=== PATIENT | female | born 1995 | race Caucasian/White ===

== ENCOUNTER 2017-07-11 03:09 | Emergency (ER) | payer SELFPAY ==
[2017-07-11] MEDS ORDERED: ONDANSETRON 4 MG (ODT) TAB ONE (03:21)
[2017-07-11] MEDS ORDERED: NA CHLORIDE 0.9% 1,000 ML ONE (03:21)
[2017-07-11] MEDS ORDERED: MAGNE/ALUM HYDROXD 30 ML UCUP ONE (03:40)
[2017-07-11 04:06] LABS: Albumin 4.6 g/dL (3.2-5.5); Bilirubin Total 0.3 mg/dL (0.3-1.2); Protein, Total 7.7 g/dL (6.0-8.3)
[2017-07-11 04:08] LABS: Potassium 2.8 mEq/L (3.6-5.0)
[2017-07-11] MEDS ORDERED: POTASSIUM CL SA 10 MEQ TAB PO ONE (04:12)
--- NOTE | 2017-07-11 04:13 | EDPHYS ---
Physician Documentation [facility] Name: Lorri Smart Age: 22 yrs Sex: Female : 1995 Arrival Date: 07/11/2017 Time: 03:10 Bed 4 Private MD: None, None ED Physician Eliot Mares HPI: 07/11 03:22 This 22 yrs old Female presents to ER via EMS with complaints of tw4 Nausea/Vomiting. 03:22 The patient presents to the emergency department with nausea, that is moderate, tw4 vomiting, 5 times since the onset of symptoms. Onset: The symptoms/episode began/occurred today. Possible causes: unknown. The symptoms are aggravated by nothing. The symptoms are alleviated by nothing. Severity of symptoms: At their worst the symptoms were moderate in the emergency department the symptoms are unchanged. The patient has not experienced similar symptoms in the past. 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 - Social history:: Smoking status: Patient uses tobacco products, smokes one pack cigarettes per day. Patient uses alcohol, occasionally. Patient/guardian denies using street drugs. - Ebola Screening: : Patient negative for fever greater than or equal to 101.5 degrees Fahrenheit, and additional compatible Ebola Virus Disease symptoms Patient denies exposure to infectious person Patient denies travel to an Ebola-affected area in the 21 days before illness onset. ROS: 03:22 Constitutional: Negative for fever, chills, and weight loss, Cardiovascular: Negative tw4 for chest pain, palpitations, and edema, Respiratory: Negative for shortness of breath, cough, wheezing, and pleuritic chest pain. 03:22 Abdomen/GI: Positive for abdominal pain, nausea and vomiting, nausea, vomiting, and diarrhea, nausea, vomiting. Exam: 03:22 Constitutional: This is a well developed, well nourished patient who is awake, alert, tw4 and in no acute distress. Head/Face: Normocephalic, atraumatic. Cardiovascular: Regular rate and rhythm with a normal S1 and S2. No gallops, murmurs, or rubs. Normal PMI, no JVD. No pulse deficits. Respiratory: Lungs have equal breath sounds bilaterally, clear to auscultation and percussion. No rales, rhonchi or wheezes noted. No increased work of breathing, no retractions or nasal flaring. 03:22 Abdomen/GI: Inspection: abdomen appears normal, Bowel sounds: normal, Palpation: mild abdominal tenderness, in the epigastric area. Vital Signs: 03:15 BP 103 / 56; Pulse 97; Resp 18; Temp 98.0(O); Pulse Ox 98% on R/A; Weight 86.18 kg (R); fc Height 5 ft. 3 in. (160.02 cm) (R); Pain 8/10; 04:07 BP 95 / 56; Pulse 72; Resp 16; Temp 98; Pulse Ox 97% on R/A; Pain 0/10; ak1 03:15 Body Mass Index 33.66 (86.18 kg, 160.02 cm) fc MDM: 03:58 Patient medically screened. tw4 04:13 Differential diagnosis: Nonspecific abd pain, gastritis. Data reviewed: vital signs, tw4 nurses notes. Data interpreted: Pulse oximetry: Interpretation: normal. Counseling: I had a detailed discussion with the patient and/or guardian regarding: the historical points, exam findings, and any diagnostic results supporting the discharge/admit diagnosis, lab results. Medication response: Zofran relieved the patient's nausea. Response to treatment: and as a result, I will discharge patient. Special discussion: I discussed with the patient/guardian in detail that at this point there is no indication for admission to the hospital. It is understood, however, that if the symptoms persist or worsen the patient needs to return immediately for re-evaluation. 07/11 03:20 Order name: ETOH Level; Complete Time: 04:09 tw4 07/11 03:20 Order name: CMP; Complete Time: 04:09 tw4 07/11 04:09 Interpretation: Normal except: K 2.8; CO2 20; GFR 75. tw4 Administered Medications: 03:23 Drug: NS 0.9% 1000 ml Route: IV; Rate: 1 bolus; Site: right antecubital; lp1 04:07 Follow up: IV Status: Completed infusion ak1 03:25 Drug: Zofran 4 mg Route: PO; ak1 03:41 Follow up: Response: No adverse reaction; Nausea is decreased ak1 03:40 Drug: Maalox Suspension (200 mg-200 mg-20 mg/5 mL) 30 ml Route: PO; ak1 03:41 Follow up: Response: No adverse reaction ak1 04:14 Drug: Potassium Chloride 40 mEq Route: PO; ak1 04:15 Follow up: Response: No adverse reaction ak1 Disposition: 07/11/17 04:13 Discharged to Home. Impression: Alcohol use, unspecified with intoxication, Hypokalemia. - Condition is Stable. - Discharge Instructions: Alcohol Intoxication, Potassium Content of Foods, Hypokalemia. - Prescriptions for Zofran 4 mg Oral Tablet - take 1 tablet by ORAL route every 12 hours As needed; 6 tablet. - Medication Reconciliation Form, Thank You Letter, Antibiotic Education, Prescription Opioid Use form. - Follow up: Private Physician; When: As needed; Reason: Recheck today's complaints, Continuance of care, Re-evaluation by your physician. - Problem is new. - Symptoms have improved. Signatures: Dispatcher [employer] EDMS Suyapa Marin RN RN fc Pena, Laura, RN RN lp1 Joelle Carranza RN RN ak1 Eliot Mares MD MD tw4 Corrections: (The following items were deleted from the chart) 04:27 04:13 07/11/2017 04:13 Discharged to Home. Impression: Alcohol use, unspecified with ak1 intoxication; Hypokalemia. Condition is Stable. Forms are Medication Reconciliation Form, Thank You Letter, Antibiotic Education, Prescription Opioid Use. Follow up: Private Physician; When: As needed; Reason: Recheck today's complaints, Continuance of care, Re-evaluation by your physician. Problem is new. Symptoms have improved. tw4
--- NOTE | 2017-07-11 04:13 | ER ---
Nurse's Notes [facility] Name: Lorri Smart Age: 22 yrs Sex: Female : 1995 Arrival Date: 07/11/2017 Time: 03:10 Bed 4 Private MD: None, None Diagnosis: Alcohol use, unspecified with intoxication;Hypokalemia Presentation: 07/11 03:10 Presenting complaint: EMS states: that pt drank a large bottle of wine and is now fc having nausea, vomiting and dehydration. Pt told them that she has had no water to drink and no food since Monday. Pt has though been drinking monster drinks, tea and soda. Had 2 large monster drinks prior to drinking the wine. Also having chest pain and stomach pain. Transition of care: patient was not received from another setting of care. Onset of symptoms was July 11, 2017. Risk Assessment: Do you want to hurt yourself or someone else? Patient reports no desire to harm self or others. Initial Sepsis Screen: Does the patient meet any 2 criteria? HR > 90 bpm. Yes Does the patient have a suspected source of infection? No. Patient's initial sepsis screen is negative. Care prior to arrival: None. 03:10 Method Of Arrival: EMS: [facility] 03:10 Acuity: NAZARIO 3 fc Triage Assessment: 03:16 General: Appears in no apparent distress. unkempt, Behavior is cooperative, Smells of ak1 alcohol, urine. Pain:. EENT: No signs and/or symptoms were reported regarding the EENT system. Neuro: Level of Consciousness is awake, alert, obeys commands, Oriented to person, place, time, situation, Moves all extremities. Speech is normal, Facial symmetry appears normal. Cardiovascular: No deficits noted. Respiratory: No deficits noted. GI: Abdomen is round Reports nausea, vomiting. : No signs and/or symptoms were reported regarding the genitourinary system. Derm: No signs and/or symptoms reported regarding the dermatologic system. Musculoskeletal: No signs and/or symptoms reported regarding the musculoskeletal system. 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 - Social history:: Smoking status: Patient uses tobacco products, smokes one pack cigarettes per day. Patient uses alcohol, occasionally. Patient/guardian denies using street drugs. - Ebola Screening: : Patient negative for fever greater than or equal to 101.5 degrees Fahrenheit, and additional compatible Ebola Virus Disease symptoms Patient denies exposure to infectious person Patient denies travel to an Ebola-affected area in the 21 days before illness onset. Screenin:16 Abuse screen: Denies threats or abuse. Nutritional screening: No deficits noted. Tuberculosis screening: No symptoms or risk factors identified. 03:18 Fall Risk IV access (20 points). Mental Status- Overestimates/Forgets Limitations (15 ak1 pts.). Assessment: 03:18 Reassessment: Patient appears in no apparent distress at this time. see triage ak1 assessment. General: Appears in no apparent distress. Behavior is cooperative, Smells of alcohol, urine. 03:45 Reassessment: Patient appears in no apparent distress at this time. No changes from ak1 previously documented assessment. Patient is alert, oriented x 3, equal unlabored respirations, skin warm/dry/pink. pt with friends at the bedside. Vital Signs: 03:15 BP 103 / 56; Pulse 97; Resp 18; Temp 98.0(O); Pulse Ox 98% on R/A; Weight 86.18 kg (R); Height 5 ft. 3 in. (160.02 cm) (R); Pain 8/10; 04:07 BP 95 / 56; Pulse 72; Resp 16; Temp 98; Pulse Ox 97% on R/A; Pain 0/10; ak1 03:15 Body Mass Index 33.66 (86.18 kg, 160.02 cm) ED Course: 03:10 Patient arrived in ED. ds1 03:10 None, None is Private Physician. ds1 03:14 Triage completed. fc 03:15 Eliot Mares MD is Attending Physician. tw4 03:15 Joelle Carranza, RN is Primary Nurse. ak1 03:15 Arm band placed on Patient placed in an exam room, on a stretcher. fc 03:16 Patient has correct armband on for positive identification. Bed in low position. Call light in reach. Side rails up X2. Pulse ox on. NIBP on. 03:16 Inserted saline lock: 22 gauge in right antecubital area, using aseptic technique. ak1 Blood collected. Missed attempt(s): 20 gauge in right antecubital area. 03:41 No provider procedures requiring assistance completed. ak1 04:08 Notified ED physician of a critical lab result(s). Potassium 2.8. lp1 04:16 IV discontinued, intact, bleeding controlled, No redness/swelling at site. Pressure ak1 dressing applied. Administered Medications: 03:23 Drug: NS 0.9% 1000 ml Route: IV; Rate: 1 bolus; Site: right antecubital; lp1 04:07 Follow up: IV Status: Completed infusion ak1 03:25 Drug: Zofran 4 mg Route: PO; ak1 03:41 Follow up: Response: No adverse reaction; Nausea is decreased ak1 03:40 Drug: Maalox Suspension (200 mg-200 mg-20 mg/5 mL) 30 ml Route: PO; ak1 03:41 Follow up: Response: No adverse reaction ak1 04:14 Drug: Potassium Chloride 40 mEq Route: PO; ak1 04:15 Follow up: Response: No adverse reaction ak1 Outcome: 04:13 Discharge ordered by . tw4 04:15 Condition: stable ak1 04:15 Discharge instructions given to patient, friend, Instructed on discharge instructions, follow up and referral plans. medication usage, Demonstrated understanding of instructions, follow-up care, medications, Prescriptions given X 1. 04:27 Discharged to home via wheelchair, with friend. ak1 04:27 Patient left the ED. ak1 Signatures: Suyapa Marin RN RN Adriana Canales dsYamileth Mccabe RN RN lp1 Joelle Carranza RN RN ak1 Eliot Mares MD MD tw4
== END 2017-07-11 04:27 | disposition home or self-care (01) ==
LOC: ER 03:09
DX: E87.6 Hypokalemia (principal); F10.129 Alcohol abuse with intoxication, unspecified; F17.210 Nicotine dependence, cigarettes, uncomplicated
CPT/HCPCS: 36415; 80053; 80320; 96360; 99284; J7030

== ENCOUNTER 2017-07-29 14:45 | Emergency (ER) | payer SELFPAY ==
[2017-07-29] MEDS ORDERED: AZITHROMYCIN 250 MG TAB ONE (15:31)
--- NOTE | 2017-07-29 15:34 | ER ---
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 Transition of care: patient was not received from another setting of care. Onset of symptoms was July 29, 2017. Risk Assessment: Do you want to hurt yourself or someone else? Patient reports no desire to harm self or others. Initial Sepsis Screen: Does the patient meet any 2 criteria? No. Patient's initial sepsis screen is negative. Does the patient have a suspected source of infection? No. Patient's initial sepsis screen is negative. Care prior to arrival: None. 15:01 Method Of Arrival: Ambulatory 15:01 Acuity: NAZARIO 4 Triage Assessment: 15:03 General: Appears in no apparent distress. uncomfortable, Behavior is cooperative, hj appropriate for age, agitated. Pain: Complains of pain in head Pain currently is 8 out of 10 on a pain scale. 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 - Social history:: Smoking status: Patient uses tobacco products, smokes one pack cigarettes per day. Patient/guardian denies using alcohol. - Ebola Screening: : Patient negative for fever greater than or equal to 101.5 degrees Fahrenheit, and additional compatible Ebola Virus Disease symptoms Patient denies exposure to infectious person Patient denies travel to an Ebola-affected area in the 21 days before illness onset. Screenin:03 Abuse screen: Denies threats or abuse. Denies injuries from another. Nutritional hj screening: No deficits noted. Tuberculosis screening: No symptoms or risk factors identified. Fall Risk None identified. Assessment: 15:20 General: Appears in no apparent distress. well groomed, well developed, well nourished, rk2 Behavior is calm, cooperative. 15:20 Neuro: Level of Consciousness is alert, obeys commands, Oriented to person, place, rk2 time, situation. Respiratory: Reports cough that is Airway is patent Respiratory effort is even, unlabored, Respiratory pattern is regular, symmetrical. Derm: Skin is pink, warm \T\ dry. Vital Signs: 15:03 BP 123 / 68; Pulse 78; Resp 18; Temp 97.6(TE); Pulse Ox 97% on R/A; Weight 90.72 kg; hj Height 5 ft. 3 in. (160.02 cm); Pain 8/10; 15:03 Body Mass Index 35.43 (90.72 kg, 160.02 cm) ED Course: 14:49 Patient arrived in ED. mr 14:49 None, None is Private Physician. mr 15:02 Triage completed. hj 15:03 Arm band placed on left wrist. hj 15:04 Patient has correct armband on for positive identification. Bed in low position. Call light in reach. Side rails up X 1. 15:05 Lucrecia Ahuja, IMER is Primary Nurse. rk2 15:06 Mohinder Medina MD is Attending Physician. snw 15:06 Ifeoma Jurado F[facility]-C [facility]. snw 16:18 No provider procedures requiring assistance completed. Patient did not have IV access rk2 during this emergency room visit. Administered Medications: 15:31 Drug: Zithromax 500 mg Route: PO; tl3 15:42 Follow up: Response: No adverse reaction; Given \T\ DC rk2 Intake: Outcome: 15:34 Discharge ordered by . snw 16:18 Discharged to home ambulatory. rk2 16:18 Condition: good 16:18 Discharge instructions given to patient, Prescriptions given X 1. 16:18 Patient left the ED. rk2 Signatures: Ifeoma Jurado FNP-C FNP-Selina Negrete FabriceKalin RN RN Lucrecia Ahuja RN RN rk2 Reina Pelletier RN RN tl3 Corrections: (The following items were deleted from the chart) 15:05 15:03 Pulse 78bpm; Resp 18bpm; Pulse Ox 97% RA; Temp 97.6F Temporal; 90.72 kg; Height 5 hj ft. 3 in.; BMI: 35.4; Pain 8/10; hj 16:18 16:17 BP 111 / 60; Pulse 77bpm; Resp 17bpm; Pulse Ox 98% RA; rk2 rk2
--- NOTE | 2017-07-29 15:34 | EDPHYS ---
Physician Documentation [facility] Name: Lorri Smart Age: 22 yrs Sex: Female : 1995 Arrival Date: 07/29/2017 Time: 14:49 Bed 27 Private MD: None, None ED Physician Mohinder Medina HPI: 07/29 16:17 This 22 yrs old Female presents to ER via Ambulatory with complaints of Flu snw Symptoms. 16:17 The patient or guardian reports airway noise, cough, with no sputum. Onset: The snw symptoms/episode began/occurred yesterday. Severity of symptoms: At their worst the symptoms were moderate. Associated signs and symptoms: The patient has no apparent associated signs or symptoms. The patient has not experienced similar symptoms in the past. The patient has not recently seen a physician. wants to make sure she does not have the flu because she lives with a woman who is . 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 - Social history:: Smoking status: Patient uses tobacco products, smokes one pack cigarettes per day. Patient/guardian denies using alcohol. - Ebola Screening: : Patient negative for fever greater than or equal to 101.5 degrees Fahrenheit, and additional compatible Ebola Virus Disease symptoms Patient denies exposure to infectious person Patient denies travel to an Ebola-affected area in the 21 days before illness onset. ROS: 16:16 Eyes: Negative for injury, pain, redness, and discharge, ENT: Negative for injury, snw pain, and discharge, Neck: Negative for injury, pain, and swelling, Cardiovascular: Negative for chest pain, palpitations, and edema. 16:16 Abdomen/GI: Negative for abdominal pain, nausea, vomiting, diarrhea, and constipation, Back: Negative for injury and pain, : Negative for injury, bleeding, discharge, and swelling, MS/Extremity: Negative for injury and deformity, Skin: Negative for injury, rash, and discoloration. 16:16 Constitutional: Positive for body aches, malaise. 16:16 Respiratory: Positive for cough, with no reported sputum. 16:16 Neuro: Positive for headache. Exam: 16:15 Constitutional: This is a well developed, well nourished patient who is awake, alert, snw and in no acute distress. Head/Face: Normocephalic, atraumatic. Eyes: Pupils equal round and reactive to light, extra-ocular motions intact. Lids and lashes normal. Conjunctiva and sclera are non-icteric and not injected. Cornea within normal limits. Periorbital areas with no swelling, redness, or edema. ENT: Nares patent. No nasal discharge, no septal abnormalities noted. Tympanic membranes to right normal, left with erythema, and external auditory canals are clear. Oropharynx with no redness, swelling, or masses, exudates, or evidence of obstruction, uvula midline. Mucous membranes moist. Chest/axilla: Normal chest wall appearance and motion. Nontender with no deformity. No lesions are appreciated. Cardiovascular: Regular rate and rhythm with a normal S1 and S2. No gallops, murmurs, or rubs. Normal PMI, no JVD. No pulse deficits. Respiratory: Lungs have equal breath sounds bilaterally, clear to auscultation and percussion. No rales, rhonchi or wheezes noted. No increased work of breathing, no retractions or nasal flaring. Abdomen/GI: Soft, non-tender, with normal bowel sounds. No distension or tympany. No guarding or rebound. No evidence of tenderness throughout. Back: No spinal tenderness. No costovertebral tenderness. Full range of motion. Skin: Warm, dry with normal turgor. Normal color with no rashes, no lesions, and no evidence of cellulitis. MS/ Extremity: Pulses equal, no cyanosis. Neurovascular intact. Full, normal range of motion. Neuro: Awake and alert, GCS 15, oriented to person, place, time, and situation. Cranial nerves II-XII grossly intact. Motor strength 5/5 in all extremities. Sensory grossly intact. Cerebellar exam normal. Normal gait. Psych: Awake, alert, with orientation to person, place and time. Behavior, mood, and affect are within normal limits. Vital Signs: 15:03 BP 123 / 68; Pulse 78; Resp 18; Temp 97.6(TE); Pulse Ox 97% on R/A; Weight 90.72 kg; hj Height 5 ft. 3 in. (160.02 cm); Pain 8/10; 15:03 Body Mass Index 35.43 (90.72 kg, 160.02 cm) hj MDM: 15:06 Patient medically screened. snw 16:17 Data reviewed: vital signs, nurses notes. Data interpreted: Pulse oximetry: on room air snw is 97 %. Interpretation: normal. Counseling: I had a detailed discussion with the patient and/or guardian regarding: the historical points, exam findings, and any diagnostic results supporting the discharge/admit diagnosis, the need for outpatient follow up, to return to the emergency department if symptoms worsen or persist or if there are any questions or concerns that arise at home. Special discussion: Based on the history and exam findings, there is no indication for further emergent testing or inpatient evaluation. I discussed with the patient/guardian the need to see the primary care provider for further evaluation of the symptoms. 07/29 15:22 Order name: Urine Dipstick--Ancillary (enter results) sp 07/29 15:22 Order name: Test Urine - POC; Complete Time: 15:57 sp Administered Medications: 15:31 Drug: Zithromax 500 mg Route: PO; tl3 15:42 Follow up: Response: No adverse reaction; Given \T\ DC rk2 Disposition: 17:29 Co-signature as Attending Physician, Mohinder Medina MD I agree with the assessment and kdr plan of care. Disposition: 07/29/17 15:34 Discharged to Home. Impression: Acute serous otitis media, left ear. - Condition is Stable. - Discharge Instructions: Otitis Media, Adult, Cough, Adult. - Prescriptions for Zithromax 500 mg Oral Tablet - take 1 tablet by ORAL route once daily for 5 days; 5 tablet. - Medication Reconciliation Form, Thank You Letter, Antibiotic Education, Prescription Opioid Use, Work release form form. - Follow up: Emergency Department; When: As needed; Reason: Worsening of condition. Follow up: Private Physician; When: 2 - 3 days; Reason: Recheck today's complaints, Continuance of care, Re-evaluation by your physician. Signatures: Dispatcher MedHoCar[facility]bad Medical CenterMohinder Deras MD MD kdr Therrien, Shelly, OPERATING ROOM RN-C OPERATING ROOM RN-Csnw Kalin Avina, RN RN hj Lucrecia Ahuja, RN RN rk2 Reina Pelletier, RN RN tl3 Corrections: (The following items were deleted from the chart) 16:18 15:34 07/29/2017 15:34 Discharged to Home. Impression: Acute serous otitis media, left rk2 ear. Condition is Stable. Forms are Medication Reconciliation Form, Thank You Letter, Antibiotic Education, Prescription Opioid Use. Follow up: Emergency Department; When: As needed; Reason: Worsening of condition. Follow up: Private Physician; When: 2 - 3 days; Reason: Recheck today's complaints, Continuance of care, Re-evaluation by your physician. snw
[2017-07-29 15:55] LABS: Urine Blood TRACE (NEG); Urine Glucose NEGATIVE (NEG); Urine Protein TRACE (NEG); Urine Specific Gravity 1.025 (1.005-1.030); Urine pH 6.5 (5.0-7.0)
== END 2017-07-29 16:18 | disposition home or self-care (01) ==
LOC: ER 14:45
DX: H65.02 Acute serous otitis media, left ear (principal); F17.210 Nicotine dependence, cigarettes, uncomplicated
CPT/HCPCS: 81003; 81025; 99283

== ENCOUNTER 2017-08-01 22:57 | Emergency (ER) | payer SELFPAY ==
[2017-08-01] MEDS ORDERED: ALBUTEROL 2.5 MG/3 ML NEB SOL ONE (23:44)
[2017-08-01] MEDS ORDERED: AZITHROMYCIN 250 MG TAB ONE (23:44)
[2017-08-01] MEDS ORDERED: DEXAMETHASONE 10 MG/ML VIAL ONE (23:44)
[2017-08-01] MEDS ORDERED: HYDROCODONE/CHLORPHEN 5 ML/OSYR ONE (23:45)
--- NOTE | 2017-08-02 00:16 | ER ---
Nurse's Notes [facility] Name: Lorri Smart Age: 22 yrs Sex: Female : 1995 Arrival Date: 08/01/2017 Time: 23:01 Bed 15 Private MD: Diagnosis: Unspecified asthma with (acute) exacerbation;Bronchitis, not specified as acute or chronic Presentation: 08/01 23:19 Presenting complaint: Patient states: I'VE BEEN SHORT OF BREATH AND COUGHING STUFF UP. bp Transition of care: patient was not received from another setting of care. Onset of symptoms was July 29, 2017. Risk Assessment: Do you want to hurt yourself or someone else? Patient reports no desire to harm self or others. Initial Sepsis Screen: Does the patient meet any 2 criteria? No. Patient's initial sepsis screen is negative. Does the patient have a suspected source of infection? No. Patient's initial sepsis screen is negative. Care prior to arrival: None. 23:19 Method Of Arrival: Ambulatory bp 23:19 Acuity: NAZARIO 4 bp Triage Assessment: 23:21 General: Appears in no apparent distress. comfortable, obese, Behavior is calm, bp cooperative, appropriate for age. Pain: Denies pain. EENT: No signs and/or symptoms were reported regarding the EENT system. Neuro: Level of Consciousness is awake, alert, obeys commands, Oriented to person, place, time, situation, Appropriate for age. Cardiovascular: No deficits noted. Respiratory: Reports shortness of breath on exertion cough that is productive, Onset: The symptoms/episode began/occurred 3 DAYS, the patient has mild shortness of breath. GI: No signs and/or symptoms were reported involving the gastrointestinal system. : No signs and/or symptoms were reported regarding the genitourinary system. Derm: No deficits noted. Musculoskeletal: Circulation, motion, and sensation intact. Range of motion: intact in all extremities. 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 - Social history:: Smoking status: Patient uses tobacco products, smokes one pack cigarettes per day. - Ebola Screening: : Patient negative for fever greater than or equal to 101.5 degrees Fahrenheit, and additional compatible Ebola Virus Disease symptoms Patient denies exposure to infectious person Patient denies travel to an Ebola-affected area in the 21 days before illness onset No symptoms or risks identified at this time. Screenin:24 Abuse screen: Denies threats or abuse. Denies injuries from another. Nutritional bp screening: No deficits noted. Tuberculosis screening: No symptoms or risk factors identified. Fall Risk None identified. Assessment: 23:24 General: SEE TRIAGE NOTE. Cardiovascular: Rhythm is sinus rhythm. Respiratory: Airway bp is patent Respiratory effort is even, unlabored, Breath sounds with wheezes. 08/02 00:27 Reassessment: PT D/C HOME AMBULATORY, DX WITH ASTHMA EXACERBATION AND BRONCHITIS. bp Vital Signs: 08/01 23:21 BP 132 / 82; Pulse 92; Resp 18; Temp 99.6; Pulse Ox 98% ; Weight 90.72 kg; Height 5 ft. bp 3 in. (160.02 cm); 08/02 00:28 BP 116 / 66; Pulse 89; Resp 16; Pulse Ox 100% ; aa1 08/01 23:21 Body Mass Index 35.43 (90.72 kg, 160.02 cm) bp ED Course: 08/01 23:01 Patient arrived in ED. es 23:07 Ifeoma Jurado FNP-C is PHCP. snw 23:07 Mike Orozco MD is Attending Physician. snw 23:20 Triage completed. bp 23:21 Arm band placed on. bp 23:24 Patient has correct armband on for positive identification. Bed in low position. Call bp light in reach. Side rails up X 1. 23:47 Naty Dale, IMER is Primary Nurse. aa1 08/02 00:28 No provider procedures requiring assistance completed. Patient did not have IV access bp during this emergency room visit. Administered Medications: 08/01 23:40 Drug: Albuterol 2.5 mg Route: Inhalation; rv 23:40 Drug: Decadron 10 mg Route: IM; Site: right deltoid; rv 08/02 00:29 Follow up: Response: No adverse reaction bp 08/01 23:40 Drug: Zithromax 500 mg Route: PO; rv 08/02 00:29 Follow up: Response: No adverse reaction bp 08/01 23:40 Drug: Tussionex Pennkinetic ER 5 ml Route: PO; rv 08/02 00:29 Follow up: Response: Marked relief of symptoms bp Outcome: 00:15 Discharge ordered by MD. bryson 00:28 Discharged to home ambulatory. bp 00:28 Condition: stable 00:28 Discharge instructions given to patient, Instructed on discharge instructions, follow up and referral plans. Demonstrated understanding of instructions, follow-up care, medications, Prescriptions given X 3. 00:29 Patient left the ED. bp Signatures: Naty Dale RN RN aa1 Ifeoma Jurado, MILLROOM SUPERVISOR-C MILLROOM SUPERVISOR-Csnw Madina Barbosa Brian RN RN bp Efrain Spencer, RN RN rv Corrections: (The following items were deleted from the chart) 00:52 00:28 BP 116 / 6; Pulse 89bpm; Resp 16bpm; Pulse Ox 100%; bp aa1
--- NOTE | 2017-08-02 00:16 | EDPHYS ---
Physician Documentation [facility] Name: Lorri Smart Age: 22 yrs Sex: Female : 1995 Arrival Date: 08/01/2017 Time: 23:01 Bed 15 Private MD: ED Physician Mike Orozco HPI: 08/02 00:52 This 22 yrs old Female presents to ER via Ambulatory with complaints of Chest snw Congestion, Breathing Difficulty. 00:52 Onset: The symptoms/episode began/occurred suddenly, 3 day(s) ago, and became snw persistent. Associated signs and symptoms: Pertinent positives: congestion, cough, fever, shortness of breath, wheezing. Modifying factors: The patient symptoms are alleviated by nothing, the patient symptoms are aggravated by smoking. The patient has experienced a previous episode. The patient has not recently seen a physician. pt using neb machine at home, states she has ample albuterol. 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 - Social history:: Smoking status: Patient uses tobacco products, smokes one pack cigarettes per day. - Ebola Screening: : Patient negative for fever greater than or equal to 101.5 degrees Fahrenheit, and additional compatible Ebola Virus Disease symptoms Patient denies exposure to infectious person Patient denies travel to an Ebola-affected area in the 21 days before illness onset No symptoms or risks identified at this time. ROS: 08/02 00:51 Constitutional: Negative for fever, chills, and weight loss, Eyes: Negative for injury, snw pain, redness, and discharge, ENT: Negative for injury, pain, and discharge, Neck: Negative for injury, pain, and swelling, Cardiovascular: Negative for chest pain, palpitations, and edema, Abdomen/GI: Negative for abdominal pain, nausea, vomiting, diarrhea, and constipation, Back: Negative for injury and pain, : Negative for injury, bleeding, discharge, and swelling, MS/Extremity: Negative for injury and deformity, Skin: Negative for injury, rash, and discoloration, Neuro: Negative for headache, weakness, numbness, tingling, and seizure, Psych: Negative for depression, anxiety, suicide ideation, homicidal ideation, and hallucinations. Respiratory: Positive for cough, pleurisy, shortness of breath, wheezing, inspiratory, expiratory. Exam: 00:50 Head/Face: Normocephalic, atraumatic. Eyes: Pupils equal round and reactive to light, snw extra-ocular motions intact. Lids and lashes normal. Conjunctiva and sclera are non-icteric and not injected. Cornea within normal limits. Periorbital areas with no swelling, redness, or edema. ENT: Nares patent. No nasal discharge, no septal abnormalities noted. Tympanic membranes are normal and external auditory canals are clear. Oropharynx with no redness, swelling, or masses, exudates, or evidence of obstruction, uvula midline. Mucous membranes moist. Neck: Trachea midline, no thyromegaly or masses palpated, and no cervical lymphadenopathy. Supple, full range of motion without nuchal rigidity, or vertebral point tenderness. No Meningismus. Chest/axilla: Normal chest wall appearance and motion. Nontender with no deformity. No lesions are appreciated. Cardiovascular: Regular rate and rhythm with a normal S1 and S2. No gallops, murmurs, or rubs. Normal PMI, no JVD. No pulse deficits. 00:50 Back: No spinal tenderness. No costovertebral tenderness. Full range of motion. Skin: Warm, dry with normal turgor. Normal color with no rashes, no lesions, and no evidence of cellulitis. MS/ Extremity: Pulses equal, no cyanosis. Neurovascular intact. Full, normal range of motion. Neuro: Awake and alert, GCS 15, oriented to person, place, time, and situation. Cranial nerves II-XII grossly intact. Motor strength 5/5 in all extremities. Sensory grossly intact. Cerebellar exam normal. Normal gait. 00:50 Constitutional: The patient appears alert, awake, anxious. 00:50 Respiratory: the patient does not display signs of respiratory distress, Respirations: normal, Breath sounds: wheezing: inspiratory expiratory is heard diffusely, tight cough, hoarse voice. Vital Signs: 08/01 23:21 BP 132 / 82; Pulse 92; Resp 18; Temp 99.6; Pulse Ox 98% ; Weight 90.72 kg; Height 5 ft. bp 3 in. (160.02 cm); 08/02 00:28 BP 116 / 66; Pulse 89; Resp 16; Pulse Ox 100% ; aa1 08/01 23:21 Body Mass Index 35.43 (90.72 kg, 160.02 cm) bp MDM: 08/01 23:26 Patient medically screened. snw 08/02 00:52 Data reviewed: vital signs, nurses notes. Data interpreted: Pulse oximetry: on room air snw is 100 %. Interpretation: normal. Counseling: I had a detailed discussion with the patient and/or guardian regarding: the historical points, exam findings, and any diagnostic results supporting the discharge/admit diagnosis, the need for outpatient follow up, the need for further work-up and treatment in the hospital, to return to the emergency department if symptoms worsen or persist or if there are any questions or concerns that arise at home. Response to treatment: the patient's symptoms have markedly improved after treatment. Special discussion: Based on the history and exam findings, there is no indication for further emergent testing or inpatient evaluation. I discussed with the patient/guardian the need to see the primary care provider for further evaluation of the symptoms. Administered Medications: 08/01 23:40 Drug: Albuterol 2.5 mg Route: Inhalation; rv 23:40 Drug: Decadron 10 mg Route: IM; Site: right deltoid; rv 08/02 00:29 Follow up: Response: No adverse reaction bp 08/01 23:40 Drug: Zithromax 500 mg Route: PO; rv 08/02 00:29 Follow up: Response: No adverse reaction bp 08/01 23:40 Drug: Tussionex Pennkinetic ER 5 ml Route: PO; rv 08/02 00:29 Follow up: Response: Marked relief of symptoms bp Disposition: 06:47 Co-signature as Attending Physician, Mike Orozco MD. rn Disposition: 08/02/17 00:15 Discharged to Home. Impression: Unspecified asthma with (acute) exacerbation, Bronchitis, not specified as acute or chronic. - Condition is Stable. - Discharge Instructions: Acute Bronchitis, Fever, Adult, Hypertension, Smoking Cessation, Cool Mist Vaporizers, Form - Asthma Action Plan, Adult, Cough, Adult. - Prescriptions for Tessalon Perles 100 mg Oral Capsule - take 1 capsule by ORAL route every 8 hours As needed; 15 capsule. Prednisone 20 mg Oral Tablet - take 2 tablet by ORAL route once daily for 5 days; 10 tablet. Zithromax 500 mg Oral Tablet - take 1 tablet by ORAL route once daily for 5 days; 5 tablet. - Work release form, Medication Reconciliation Form, Thank You Letter, Antibiotic Education, Prescription Opioid Use form. - Follow up: Private Physician; When: 2 - 3 days; Reason: Recheck today's complaints, Continuance of care, Re-evaluation by your physician. Follow up: Emergency Department; When: As needed; Reason: Worsening of condition. Signatures: Ifeoma Jurado, SENIOR QC TECHNICIAN-C SENIOR QC TECHNICIAN-Csnw Mike Orozco MD MD rn Jonas Peña RN RN bp Efrain Spencer, RN RN rv Corrections: (The following items were deleted from the chart) 00:29 00:15 08/02/2017 00:15 Discharged to Home. Impression: Unspecified asthma with (acute) bp exacerbation; Bronchitis, not specified as acute or chronic. Condition is Stable. Forms are Medication Reconciliation Form, Thank You Letter, Antibiotic Education, Prescription Opioid Use. Follow up: Private Physician; When: 2 - 3 days; Reason: Recheck today's complaints, Continuance of care, Re-evaluation by your physician. Follow up: Emergency Department; When: As needed; Reason: Worsening of condition. snw
== END 2017-08-02 00:29 | disposition home or self-care (01) ==
LOC: ER 22:57
DX: J45.901 Unspecified asthma with (acute) exacerbation (principal); J40 Bronchitis, not specified as acute or chronic; F17.210 Nicotine dependence, cigarettes, uncomplicated
CPT/HCPCS: 96372; 99284; J1100